=== PATIENT | female | born 1970 | race Caucasian/White ===

== ENCOUNTER 2019-03-30 18:45 | Emergency (ER) | payer BC, OTHER ==
--- NOTE | 2019-03-30 19:14 | ERPHSYRPT ---
- History of Present Illness Time Seen by Provider: 03/30/19 19:00 Source: patient Exam Limitations: clinical condition Patient Subjective Stated Complaint: pt reports she was stopped by police for failing to use her turn signal, pt denies being under the influence. pt reports abdominal pain, states she hasnt pooped for 2 days. pt denies any other complaints. pt reports being discharged from treatment center [facility] in [facility] yesterday, reports formerly using methamphetamine, states she has been trying to stay clean. pt reports she uses alcohol weekly. Triage Nursing Assessment: pt is aox3, pt appears tearful, pt make up is smeared down her face, pt appears to doze off at times but awakens easily, pupils perrl, afebrile, resps easy and non labored, cap refill < 3 seconds, radial pulses strong and equal. pt abd soft non tender, bowel sounds normoactive x4. pt skin pink warm dry. Physician History: PATIENT WITH A HISTORY OF METHAMPHETAMINE USE, JUST RELEASED FROM [facility] YESTERDAY AND WAS STOPPED BY POLICE FOR A TRAFFIC VIOLATION. DENIES INGESTION OF ALCOHOL OR STREET DRUGS. PATIENT HERE FOR MEDICAL CLEARANCE FOR LONGTERM. Timing/Duration: today Modifying Factors: Improves With: other (CONSTIPATION FOR 2 DAYS.) Associated Symptoms: other (CONSTIPATION ) Allergies/Adverse Reactions: No Known Drug Allergies Allergy (Unverified 03/30/19 19:04) Home Medications: No Reportable Medications [No Reported Medications] 03/30/19 [History] Hx Tetanus, Diphtheria Vaccination/Date Given: No Hx Influenza Vaccination/Date Given: No Hx Pneumococcal Vaccination/Date Given: No Immunizations Up to Date: Yes - Review of Systems Constitutional: No Fever, No Chills Eyes: No Symptoms Ears, Nose, & Throat: No Symptoms Respiratory: No Cough, No Dyspnea Cardiac: No Chest Pain, No Edema, No Syncope Abdominal/Gastrointestinal: Other (CONSTIPATION), No Abdominal Pain, No Nausea, No Vomiting, No Diarrhea Genitourinary Symptoms: No Dysuria Musculoskeletal: No Back Pain, No Neck Pain Skin: No Rash Neurological: No Dizziness, No Focal Weakness, No Sensory Changes Psychological: No Symptoms Endocrine: No Symptoms All Other Systems: Reviewed and Negative - Past Medical History Respiratory History: Asthma - Past Surgical History Past Surgical History: Yes Gastrointestinal: Cholecystectomy Other Surgical History: bunion removal bilat - Social History Smoking Status: Current every day smoker Patient Lives Alone: Yes - Female History Hx Last Menstrual Period: 03/29/19 Hx Now: No - Nursing Vital Signs Nursing Vital Signs: Initial Vital Signs Temperature 98 F 03/30/19 18:47 Pulse Rate 90 03/30/19 18:47 Respiratory Rate 20 03/30/19 18:47 Blood Pressure 158/106 03/30/19 18:47 O2 Sat by Pulse Oximetry 99 03/30/19 18:47 Pain Scale Pain Intensity 6 - Physical Exam General Appearance: no apparent distress, alert Eye Exam: PERRL/EOMI, eyes nml inspection Ears, Nose, Throat Exam: normal ENT inspection, TMs normal, pharynx normal, moist mucous membranes Neck Exam: normal inspection, non-tender, supple, full range of motion Respiratory Exam: normal breath sounds, lungs clear, No respiratory distress Cardiovascular Exam: regular rate/rhythm, normal heart sounds, normal peripheral pulses Gastrointestinal/Abdomen Exam: soft, normal bowel sounds, other (NONTENDER, NO PALPABLE MASSES), No tenderness, No mass Back Exam: normal inspection, normal range of motion, No CVA tenderness, No vertebral tenderness Extremity Exam: normal inspection, normal range of motion, pelvis stable Neurologic Exam: alert, oriented x 3, cooperative, normal mood/affect, nml cerebellar function, nml station & gait, sensation nml, No motor deficits Skin Exam: normal color, warm, dry, No rash Lymphatic Exam: No adenopathy SpO2: 99 Ordered Tests: Active Orders 24 hr Category Date Time Status BMP Stat Lab 03/30/19 18:50 Ordered CBC W DIFF Stat Lab 03/30/19 18:50 Ordered ETHYL ALCOHOL Stat Lab 03/30/19 18:50 Ordered Urine Triage Profile Stat Lab 03/30/19 18:51 Uncollected - Progress Progress Note: 03/30/19 19:14 PATIENT REFUSED LAB DRAW OR URINALYSIS FOR TRIAGE Counseled pt/family regarding: diagnosis - Departure Departure Disposition: [facility]/Long Term Clinical Impression: Medical clearance for incarceration Condition: Stable Critical Care Time: No Referrals: RADHA MONTEIRO [Primary Care Provider] - Additional Instructions: FOLLOWUP WITH YOUR PRIMARY CARE PROVIDER NEEDED.
[2019-03-30 19:38] VITALS: BP 163/98; PULSE 80; O2SAT 100
== END 2019-03-30 19:22 | disposition home or self-care (01) ==
LOC: ED 18:45
DX: Z02.89 Encounter for other administrative examinations (principal)
CPT/HCPCS: 99283

== ENCOUNTER 2019-03-31 16:38 | Emergency (ER) | payer OTHER ==
--- NOTE | 2019-03-31 16:57 | ERPHSYRPT ---
- History of Present Illness Time Seen by Provider: 03/31/19 16:45 Source: patient, police Exam Limitations: no limitations Physician History: 48 y/o white female resident in local detention, smoker with h/o asthma arrives via em[facility] with complaint of soa. pt seen here yesterday in this ED and was medically cleared for detention placement. per asset protection officer sx began earlier when she did not get a phone call at detention. ems gave pt a neb tx Timing/Duration: today Activities at Onset: none Severity of Dyspnea-Max: mild Severity of Dyspnea-Current: mild Possible Cause: no prior episodes Associated Symptoms: anxiety, cough, wheezing Allergies/Adverse Reactions: No Known Drug Allergies Allergy (Verified 03/31/19 16:52) Home Medications: No Reportable Medications [No Reported Medications] 03/30/19 [History] Hx Tetanus, Diphtheria Vaccination/Date Given: No Hx Influenza Vaccination/Date Given: No Hx Pneumococcal Vaccination/Date Given: No - Review of Systems Constitutional: No Symptoms Eyes: No Symptoms Ears, Nose, & Throat: No Symptoms Respiratory: Dyspnea, Wheezing Cardiac: No Symptoms Abdominal/Gastrointestinal: No Symptoms Genitourinary Symptoms: No Symptoms Musculoskeletal: No Symptoms Skin: No Symptoms Neurological: No Symptoms Psychological: No Symptoms Endocrine: No Symptoms Hematologic/Lymphatic: No Symptoms Immunological/Allergic: No Symptoms All Other Systems: Reviewed and Negative - Past Medical History Neurological History: No Pertinent History ENT History: No Pertinent History Cardiac History: No Pertinent History Respiratory History: Asthma Endocrine Medical History: No Pertinent History Musculoskeletal History: No Pertinent History GI Medical History: No Pertinent History History: No Pertinent History Psycho-Social History: Anxiety Female Reproductive Disorders: No Pertinent History - Past Surgical History Past Surgical History: Yes Neuro Surgical History: No Pertinent History Cardiac: No Pertinent History Respiratory: No Pertinent History Gastrointestinal: Cholecystectomy Genitourinary: No Pertinent History Musculoskeletal: No Pertinent History Female Surgical History: No Pertinent History Other Surgical History: bunion removal bilat - Social History Smoking Status: Current every day smoker Patient Lives Alone: Yes - Nursing Vital Signs Nursing Vital Signs: Initial Vital Signs Temperature 98.8 F 03/31/19 16:41 Pulse Rate 88 03/31/19 16:41 Respiratory Rate 24 03/31/19 16:41 Blood Pressure 150/103 03/31/19 16:41 O2 Sat by Pulse Oximetry 100 03/31/19 16:41 - Physical Exam General Appearance: no apparent distress, alert, anxiety Eye Exam: PERRL/EOMI, eyes nml inspection Ears, Nose, Throat Exam: hearing grossly normal Neck Exam: normal inspection, non-tender, supple, full range of motion Respiratory Exam: normal breath sounds, lungs clear, airway intact, No chest tenderness, No respiratory distress Cardiovascular/Chest Exam: normal heart sounds, regular rate/rhythm, murmur Abdominal/Gastrointestinal Exam: soft, normal bowel sounds, No tenderness Rectal Exam: not done Extremity Exam: non-tender, normal range of motion, normal inspection Neurologic Exam: alert, oriented x 3, cooperative, combatant diver qualified II-XII nml as tested Skin Exam: normal color, warm, dry Lymphatic Exam: No adenopathy SpO2 Interpretation: borderline oxygenation O2 Delivery: Room Air - Course Nursing assessment & vital signs reviewed: Yes EKG Interpreted by Me: RATE (65), Sinus Rhythm, NORMAL AXIS, NORMAL INTERVALS, NORMAL QRS, Non-specific ST Changes, Other (no comparison ekg) Ordered Tests: Active Orders 24 hr Category Date Time Status EKG-ER Only STAT Care 03/31/19 16:58 Active Pulse Oximetry (ED) STAT Care 03/31/19 16:58 Active CHEST 1 VIEW (PORTABLE) Stat Exams 03/31/19 16:58 Taken BMP Stat Lab 03/31/19 17:18 Completed CBC W DIFF Stat Lab 03/31/19 17:18 Completed D-DIMER QUANTITATION Stat Lab 03/31/19 17:18 Completed TROPONIN Q3H Lab 03/31/19 17:18 Completed TROPONIN Q3H Lab 03/31/19 20:00 Ordered TROPONIN Q3H Lab 03/31/19 23:00 Ordered TROPONIN Q3H Lab 04/01/19 02:00 Ordered TROPONIN Q3H Lab 04/01/19 05:00 Ordered Lab/Rad Data: Laboratory Result Diagrams 03/31/19 17:18 03/31/19 17:18 Laboratory Results 03/31/19 03/31/19 03/31/19 Range/Units 17:18 17:18 17:18 WBC (4.0-10.5) K/mm3 RBC (4.1-5.4) M/mm3 Hgb (12.0-16.0) gm/dl Hct (35-47) % MCV (78-100) fl MCH (26-32) pg MCHC (32-36) g/dl RDW (11.5-14.0) % Plt Count (150-450) K/mm3 MPV (6-9.5) fl Gran % (36.0-66.0) % Eos # (Auto) (0-0.5) Absolute Lymphs (auto) (1.0-4.6) Absolute Monos (auto) (0.0-1.3) Lymphocytes % (24.0-44.0) % Monocytes % (0.0-12.0) % Eosinophils % (0.00-5.0) % Basophils % (0.0-0.4) % Absolute Granulocytes (1.4-6.9) Basophils # (0-0.4) D-Dimer 247 (215-500) ng/mL Sodium 139 (137-145) mmol/L Potassium 3.7 (3.5-5.1) mmol/L Chloride 105 (98-107) mmol/L Carbon Dioxide 25 (22-30) mmol/L Anion Gap 12.6 (5-15) MEQ/L BUN 10 (7-17) mg/dL Creatinine 0.76 (0.52-1.04) mg/dL Estimated GFR > 60.0 ML/MIN Glucose 89 (74-106) mg/dL Calcium 9.5 (8.4-10.2) mg/dL Troponin I < 0.012 (0.000-0.034) ng/mL 03/31/19 Range/Units 17:18 WBC 10.6 H (4.0-10.5) K/mm3 RBC 4.95 (4.1-5.4) M/mm3 Hgb 15.6 (12.0-16.0) gm/dl Hct 47.5 H (35-47) % MCV 96.0 (78-100) fl MCH 31.5 (26-32) pg MCHC 32.8 (32-36) g/dl RDW 13.1 (11.5-14.0) % Plt Count 318 (150-450) K/mm3 MPV 9.1 (6-9.5) fl Gran % 65.2 (36.0-66.0) % Eos # (Auto) 0.21 (0-0.5) Absolute Lymphs (auto) 2.76 (1.0-4.6) Absolute Monos (auto) 0.67 (0.0-1.3) Lymphocytes % 26.1 (24.0-44.0) % Monocytes % 6.3 (0.0-12.0) % Eosinophils % 2.0 (0.00-5.0) % Basophils % 0.4 (0.0-0.4) % Absolute Granulocytes 6.90 (1.4-6.9) Basophils # 0.04 (0-0.4) D-Dimer (215-500) ng/mL Sodium (137-145) mmol/L Potassium (3.5-5.1) mmol/L Chloride (98-107) mmol/L Carbon Dioxide (22-30) mmol/L Anion Gap (5-15) MEQ/L BUN (7-17) mg/dL Creatinine (0.52-1.04) mg/dL Estimated GFR ML/MIN Glucose (74-106) mg/dL Calcium (8.4-10.2) mg/dL Troponin I (0.000-0.034) ng/mL - Progress Progress: unchanged Air Movement: good Progress Note: 03/31/19 18:52 pt has been resting comfortably during here. sleeping. pts room air sats 96% 03/31/19 18:53 cxr-no acute process Counseled pt/family regarding: lab results, diagnosis, need for follow-up, rad results - Departure Departure Disposition: [facility]ior [facility] Clinical Impression: Shortness of breath, Anxiety Condition: Stable Critical Care Time: No Referrals: DOCTOR,NO FAMILY [Primary Care Provider] -
[2019-03-31 17:15] LABS: BASOPHIL % 0.4 % (0.0-0.4); Basophil (Absolute #) 0.04 (0-0.4); Eosinophil (Absolute #) 0.21 (0-0.5); Granulocytes % 65.2 % (36.0-66.0); Hematocrit 47.5 % (35-47); Hemoglobin 15.6 gm/dl (12.0-16.0); Lymphocyte (Absolute #) 2.76 (1.0-4.6); Lymphocytes % 26.1 % (24.0-44.0); Mean Corpuscular Hemoglobin 31.5 pg (26-32); Mean Corpuscular Hgb Concent. 32.8 g/dl (32-36); Mean Platelet Volume 9.1 fl (6-9.5); Monocyte (Absolute #) 0.67 (0.0-1.3); Monocytes % 6.3 % (0.0-12.0); Platelet Count 318 K/mm3 (150-450); Red Blood Count 4.95 M/mm3 (4.1-5.4); Red Cell Distribution Width 13.1 % (11.5-14.0); White Blood Count 10.6 K/mm3 (4.0-10.5)
[2019-03-31 17:27] LABS: ANION GAP 12.6 MEQ/L (5-15); BLOOD UREA NITROGEN 10 mg/dL (7-17); CHLORIDE 105 mmol/L (98-107); Calcium 9.5 mg/dL (8.4-10.2); Carbon Dioxide 25 mmol/L (22-30); Creatinine 1 0.76 mg/dL (0.52-1.04); Glucose 89 mg/dL (74-106); Potassium 3.7 mmol/L (3.5-5.1); SODIUM 139 mmol/L (137-145)
[2019-03-31 18:50] VITALS: O2SAT 96
[2019-03-31 18:58] VITALS: BP 151/90; PULSE 87
--- NOTE | 2019-04-01 08:34 | XRAY ---
Indication: Chest pain and short of breath. Comparison: None Portable chest demonstrates normal heart and lungs with incidental calcified granulomas. Bony thorax intact.
== END 2019-03-31 19:10 | disposition home or self-care (01) ==
LOC: ED 16:38
DX: R06.02 Shortness of breath (principal); F41.9 Anxiety disorder, unspecified
CPT/HCPCS: 36415; 71045; 80048; 84484; 85025; 85379; 93005; 99284

== ENCOUNTER 2019-05-09 16:49 | Emergency (ER) | payer OTHER ==
--- NOTE | 2019-05-09 16:50 | ERPHSYRPT ---
- History of Present Illness Source: patient, police Exam Limitations: intoxication Timing/Duration: today Severity of Symptoms-Max: mild Severity of Symptoms-Current: mild Context related to: legal problems Suicidal thoughts: specific plan (shotgun) Associated Symptoms: agitated, anxiety, ingestion Previous symptoms: same symptoms as today Hx Tetanus, Diphtheria Vaccination/Date Given: No Hx Influenza Vaccination/Date Given: No Hx Pneumococcal Vaccination/Date Given: No <HERON RIZZO - Last Filed: 05/09/19 19:11> <JENIFER JUAREZ - Last Filed: 05/10/19 00:45> - History of Present Illness Time Seen by Provider: 05/09/19 16:50 Physician History: 48 y/o white female brought into ED by police after serving her an arrest warrant. police handcuffed pt and then policed witnessed pt swallow a baggy containing 1 gram of methamphetamine. pt states on arrival to ED she wants to kill herself. pt states she was going to kill herself yesterday with a shotgun but she was "too much of a pussy". pt initially stated she was having soa and hyperventilating but once we talked to her about her necessary work up and possible emergency senior care and 72 hour hold, she immediately was relieved of her symptoms. (HERON RIZZO) Allergies/Adverse Reactions: codeine Allergy (Verified 05/09/19 18:56) Home Medications: No Reportable Medications [No Reported Medications] 03/30/19 [History] - Past Medical History Neurological History: No Pertinent History ENT History: No Pertinent History Cardiac History: No Pertinent History Respiratory History: Asthma Endocrine Medical History: No Pertinent History Musculoskeletal History: No Pertinent History GI Medical History: No Pertinent History History: No Pertinent History Psycho-Social History: Anxiety Female Reproductive Disorders: No Pertinent History - Past Surgical History Past Surgical History: Yes Neuro Surgical History: No Pertinent History Cardiac: No Pertinent History Respiratory: No Pertinent History Gastrointestinal: Cholecystectomy Genitourinary: No Pertinent History Musculoskeletal: No Pertinent History Female Surgical History: No Pertinent History Other Surgical History: bunion removal bilat - Social History Smoking Status: Current every day smoker Exposure to second hand smoke: Yes Drug Use: methamphetamines Patient Lives Alone: Yes <HERON RIZZO - Last Filed: 05/09/19 19:11> - Review of Systems Constitutional: No Symptoms Eyes: No Symptoms Ears, Nose, & Throat: No Symptoms Respiratory: No Symptoms Cardiac: No Symptoms Abdominal/Gastrointestinal: No Symptoms Genitourinary Symptoms: No Symptoms Musculoskeletal: No Symptoms Skin: No Symptoms Neurological: No Symptoms Psychological: No Symptoms Endocrine: No Symptoms Hematologic/Lymphatic: No Symptoms Immunological/Allergic: No Symptoms All Other Systems: Reviewed and Negative <HERON RIZZO - Last Filed: 05/09/19 19:11> - Physical Exam General Appearance: mild distress, alert, anxiety Eyes, Ears, Nose, Throat Exam: normal ENT inspection, moist mucous membranes Neck Exam: normal inspection, non-tender, supple, full range of motion Respiratory Exam: normal breath sounds, lungs clear, airway intact, No chest tenderness, No respiratory distress Cardiovascular Exam: tachycardia Gastrointestinal/Abdominal Exam: soft, normal bowel sounds, No tenderness Extremities Exam: normal inspection, normal range of motion, No evidence of injury Current Suicidality: has suicide plan Neurological Exam: alert, airplane patroller II-XII nml as tested, oriented x 3, anxious Appearance: disheveled, impaired insight Behavior/Eye Contact/Speech: avoids eye contact, alert & uncooperative Thoughts/Hallucinations: no apparent hallucination Skin Exam: normal color, warm, dry SpO2 Interpretation: normal O2 Delivery: Room Air <HERON RIZZO - Last Filed: 05/09/19 19:11> - Nursing Vital Signs Nursing Vital Signs: Initial Vital Signs Temperature 98.0 F 05/09/19 16:50 Pulse Rate 114 H 05/09/19 16:50 Respiratory Rate 24 05/09/19 16:50 Blood Pressure 128/74 05/09/19 16:50 O2 Sat by Pulse Oximetry 100 05/09/19 16:50 Pain Scale Pain Intensity 2 - Course Nursing assessment & vital signs reviewed: Yes EKG Interpreted by Me: RATE (100), Sinus Rhythm, NORMAL AXIS, NORMAL INTERVALS, NORMAL QRS, Other (no sig change from comparison ekg dated 03/31/19) <HERON RIZZO - Last Filed: 05/09/19 19:11> - CT Exams Abdomen/Pelvis CT Interpretation: Discussed w/radiologist (CT abdomen and pelvis: Impression 1. No comparisons. Stomach moderately distended with food/fluid. Query 9 mm round radiopacity mixed in. Mild diffuse fecal stasis. Minimal sigmoid diverticulosis. Low-lying IUD. Remaining uterus lumpy/bumpy possible fibroids. 1 cm right renal cyst) <JENIFER JUAREZ - Last Filed: 05/10/19 00:45> Ordered Tests: Active Orders 24 hr Category Date Time Status Clean Catch Urine Specimen STAT Care 05/09/19 17:18 Active EKG-ER Only STAT Care 05/09/19 17:18 Active IV Insertion STAT Care 05/09/19 17:18 Active ABDOMEN AND PELVIS W/0 CONTRAS [CT] Stat Exams 05/09/19 18:15 Taken KUB Stat Exams 05/09/19 17:19 Taken ACETAMINOPHEN Stat Lab 05/09/19 17:51 Completed CBC W DIFF Stat Lab 05/09/19 17:51 Completed CMP Stat Lab 05/09/19 17:51 Completed ETHYL ALCOHOL Stat Lab 05/09/19 17:51 Completed HCG,QUALITATIVE URINE Stat Lab 05/09/19 19:30 Completed SALICYLATE Stat Lab 05/09/19 17:51 Completed UA W/RFX UR CULTURE Stat Lab 05/09/19 17:18 Completed Urine Triage Profile Stat Lab 05/09/19 17:18 Completed Medication Summary Discontinued Medications Generic Name Dose Route Start Last Admin Trade Name Freq PRN Reason Stop Dose Admin Sodium Chloride 1,000 mls @ 999 mls/hr 05/09/19 17:18 05/09/19 18:15 Sodium Chloride 0.9% 1000 Ml IV 05/09/19 18:18 999 mls/hr .Q1H1M STA Administration Sodium Chloride Confirm 05/09/19 18:12 Sodium Chloride 0.9% 1000 Ml Administered 05/09/19 18:13 Dose 1,000 mls @ ud .ROUTE .STK-MED ONE Ondansetron HCl 4 mg 05/09/19 17:18 05/09/19 18:15 Zofran 4 Mg/2 Ml Vial IV 05/09/19 17:19 4 mg STAT ONE Administration Ondansetron HCl Confirm 05/09/19 18:12 Zofran 4 Mg/2 Ml Vial Administered 05/09/19 18:13 Dose 4 mg .ROUTE .STK-MED ONE Lab/Rad Data: Laboratory Result Diagrams 05/09/19 17:51 05/09/19 17:51 Laboratory Results 05/09/19 05/09/19 05/09/19 Range/Units 19:30 17:51 17:51 WBC 9.8 (4.0-10.5) K/mm3 RBC 4.55 (4.1-5.4) M/mm3 Hgb 14.3 (12.0-16.0) gm/dl Hct 43.5 (35-47) % MCV 95.6 (78-100) fl MCH 31.4 (26-32) pg MCHC 32.9 (32-36) g/dl RDW 13.1 (11.5-14.0) % Plt Count 324 (150-450) K/mm3 MPV 9.1 (6-9.5) fl Gran % 64.7 (36.0-66.0) % Eos # (Auto) 0.37 (0-0.5) Absolute Lymphs (auto) 2.29 (1.0-4.6) Absolute Monos (auto) 0.77 (0.0-1.3) Lymphocytes % 23.3 L (24.0-44.0) % Monocytes % 7.8 (0.0-12.0) % Eosinophils % 3.8 (0.00-5.0) % Basophils % 0.4 (0.0-0.4) % Absolute Granulocytes 6.35 (1.4-6.9) Basophils # 0.04 (0-0.4) Sodium 140 (137-145) mmol/L Potassium 3.4 L (3.5-5.1) mmol/L Chloride 104 (98-107) mmol/L Carbon Dioxide 27 (22-30) mmol/L Anion Gap 12.2 (5-15) MEQ/L BUN 14 (7-17) mg/dL Creatinine 0.80 (0.52-1.04) mg/dL Estimated GFR > 60.0 ML/MIN Glucose 126 H (74-106) mg/dL Calcium 9.8 (8.4-10.2) mg/dL Total Bilirubin 0.30 (0.2-1.3) mg/dL AST 20 (14-36) U/L ALT 19 (0-35) U/L Alkaline Phosphatase 61 (38-126) U/L Serum Total Protein 7.1 (6.3-8.2) g/dL Albumin 3.9 (3.5-5.0) g/dL Urine Color (YELLOW) Urine Appearance (CLEAR) Urine pH (5-6) Ur Specific [place] (1.005-1.025) Urine Protein (Negative) Urine Ketones (NEGATIVE) Urine Blood (0-5) Tay/ul Urine Nitrite (NEGATIVE) Urine Bilirubin (NEGATIVE) Urine Urobilinogen (0-1) mg/dL Ur Leukocyte Esterase (NEGATIVE) Urine WBC (Auto) (0-5) /HPF Urine RBC (Auto) (0-2) /HPF U Epithel Cells (Auto) (FEW) /HPF Urine Bacteria (Auto) (NEGATIVE) /HPF Urine Mucus (Auto) (NEGATIVE) /HPF Urine Culture Reflexed (NO) Urine Glucose (NEGATIVE) mg/dL Urine HCG, Qual NEGATIVE (Negative) Salicylates < 1.0 L (2-20) mg/dL Urine Opiates Level (NEGATIVE) Ur Methadone (NEGATIVE) Acetaminophen < 10 L (10-30) ug/ml Urine Barbiturates (NEGATIVE) Ur Phencyclidine (PCP) (NEGATIVE) Urine Amphetamine (NEGATIVE) U Benzodiazepine Level (NEGATIVE) Urine Cocaine (NEGATIVE) Urine Marijuana (THC) (NEGATIVE) Ethyl Alcohol < 10 (0-10) mg/dL 05/09/19 05/09/19 Range/Units 17:18 17:18 WBC (4.0-10.5) K/mm3 RBC (4.1-5.4) M/mm3 Hgb (12.0-16.0) gm/dl Hct (35-47) % MCV (78-100) fl MCH (26-32) pg MCHC (32-36) g/dl RDW (11.5-14.0) % Plt Count (150-450) K/mm3 MPV (6-9.5) fl Gran % (36.0-66.0) % Eos # (Auto) (0-0.5) Absolute Lymphs (auto) (1.0-4.6) Absolute Monos (auto) (0.0-1.3) Lymphocytes % (24.0-44.0) % Monocytes % (0.0-12.0) % Eosinophils % (0.00-5.0) % Basophils % (0.0-0.4) % Absolute Granulocytes (1.4-6.9) Basophils # (0-0.4) Sodium (137-145) mmol/L Potassium (3.5-5.1) mmol/L Chloride (98-107) mmol/L Carbon Dioxide (22-30) mmol/L Anion Gap (5-15) MEQ/L BUN (7-17) mg/dL Creatinine (0.52-1.04) mg/dL Estimated GFR ML/MIN Glucose (74-106) mg/dL Calcium (8.4-10.2) mg/dL Total Bilirubin (0.2-1.3) mg/dL AST (14-36) U/L ALT (0-35) U/L Alkaline Phosphatase (38-126) U/L Serum Total Protein (6.3-8.2) g/dL Albumin (3.5-5.0) g/dL Urine Color STRAW (YELLOW) Urine Appearance CLEAR (CLEAR) Urine pH 7.0 (5-6) Ur Specific [place] 1.008 (1.005-1.025) Urine Protein NEGATIVE (Negative) Urine Ketones NEGATIVE (NEGATIVE) Urine Blood NEGATIVE (0-5) Tay/ul Urine Nitrite NEGATIVE (NEGATIVE) Urine Bilirubin NEGATIVE (NEGATIVE) Urine Urobilinogen NEGATIVE (0-1) mg/dL Ur Leukocyte Esterase NEGATIVE (NEGATIVE) Urine WBC (Auto) 0-2 (0-5) /HPF Urine RBC (Auto) 0-2 (0-2) /HPF U Epithel Cells (Auto) RARE (FEW) /HPF Urine Bacteria (Auto) NONE (NEGATIVE) /HPF Urine Mucus (Auto) SLIGHT (NEGATIVE) /HPF Urine Culture Reflexed NO (NO) Urine Glucose NEGATIVE (NEGATIVE) mg/dL Urine HCG, Qual (Negative) Salicylates (2-20) mg/dL Urine Opiates Level NEGATIVE (NEGATIVE) Ur Methadone NEGATIVE (NEGATIVE) Acetaminophen (10-30) ug/ml Urine Barbiturates NEGATIVE (NEGATIVE) Ur Phencyclidine (PCP) NEGATIVE (NEGATIVE) Urine Amphetamine POSITIVE (NEGATIVE) U Benzodiazepine Level NEGATIVE (NEGATIVE) Urine Cocaine NEGATIVE (NEGATIVE) Urine Marijuana (THC) POSITIVE (NEGATIVE) Ethyl Alcohol (0-10) mg/dL <HERON RIZZO - Last Filed: 05/09/19 19:11> - Progress Progress: improved <JENIFER JUAREZ - Last Filed: 05/10/19 00:45> - Progress Progress Note: 05/09/19 19:[address] juarez. he accepts pt (HERON RIZZO) 05/09/19 23:28 48-year-old white female with history of anxiety brought by police after serving an old rest warned patient apparently was witnessed to swallow baggy which she stated contained 1 g of methamphetamines Patient then expressed suicidal ideation she apparently arrived hyperventilating. Patient has been stable since arrival patient did have an episode where she pulled a plastic bag over her head but housekeeping coordinator noticed this in bed was taken away Patient is positive for methamphetamines as well as marijuana Her other labs are essentially stable EKG sinus rhythm without ectopy. Patient was evaluated through [facility] [place] [facility]. Apparently there were no available beds There was consideration to having the patient go to a secure area in the residential and [facility] had actually stated that the patient could be evaluated at the residential in the morning. The nurses are working to explore possible placement for this patient. The patient is stable at this time. 05/09/19 23:31 The patient had been discussed by the patient's nurse with poison control. They had recommended monitoring the patient for 6 hours after her possible ingestion. The patient has had no problems other than her suicidal ideation since discussion with poison control. 05/10/19 00:37 There apparently no available beds for the patient at this time. Patient will be taken by the police to [facility] where there are nurses available to monitor the patient. The plan is to have the patient reevaluated by [facility] tomorrow. the patient has been discussed with the nurse at the [facility] by our nurse here they are accepting the patient at the [facility] 05/10/19 00:41 (JENIFER JUAREZ) <HERON RIZZO - Last Filed: 05/09/19 19:11> - Departure Departure Disposition: [facility] Critical Care Time: No <JENIFER JUAREZ - Last Filed: 05/10/19 00:45> - Departure Clinical Impression: Suicidal ideation, intentional drug ingestion( methamphetam Condition: Fair Referrals: DOCTOR,NO FAMILY [Primary Care Provider] - Additional Instructions: Proceed to the [facility]. Followup with [facility]. followup with residential doctor.
[2019-05-09] MEDS ORDERED: Sodium Chloride 0.9% 1000 ML 1,000 ML IV STA (17:18)
[2019-05-09] MEDS ORDERED: Zofran 4 MG/2 ML VIAL IV ONE (17:18)
[2019-05-09 17:54] LABS: BASOPHIL % 0.4 % (0.0-0.4); Basophil (Absolute #) 0.04 (0-0.4); Eosinophil % 3.8 % (0.00-5.0); Eosinophil (Absolute #) 0.37 (0-0.5); Granulocyte Absolute (ANC) 6.35 (1.4-6.9); Granulocytes % 64.7 % (36.0-66.0); Hematocrit 43.5 % (35-47); Hemoglobin 14.3 gm/dl (12.0-16.0); Lymphocyte (Absolute #) 2.29 (1.0-4.6); Lymphocytes % 23.3 % (24.0-44.0); Mean Cell Volume 95.6 fl (78-100); Mean Corpuscular Hemoglobin 31.4 pg (26-32); Mean Corpuscular Hgb Concent. 32.9 g/dl (32-36); Mean Platelet Volume 9.1 fl (6-9.5); Monocytes % 7.8 % (0.0-12.0); Platelet Count 324 K/mm3 (150-450); Red Blood Count 4.55 M/mm3 (4.1-5.4); Red Cell Distribution Width 13.1 % (11.5-14.0); White Blood Count 9.8 K/mm3 (4.0-10.5)
[2019-05-09 18:07] LABS: ALBUMIN 3.9 g/dL (3.5-5.0); ALKALINE PHOSPHATASE 61 U/L (38-126); ANION GAP 12.2 MEQ/L (5-15); BLOOD UREA NITROGEN 14 mg/dL (7-17); CHLORIDE 104 mmol/L (98-107); Calcium 9.8 mg/dL (8.4-10.2); Carbon Dioxide 27 mmol/L (22-30); Glucose 126 mg/dL (74-106); Potassium 3.4 mmol/L (3.5-5.1); SGOT/AST 20 U/L (14-36); SGPT/ALT 19 U/L (0-35); SODIUM 140 mmol/L (137-145); Total Protein 7.1 g/dL (6.3-8.2)
[2019-05-09] MEDS ORDERED: Zofran 4 MG/2 ML VIAL ONE (18:12)
[2019-05-09] MEDS ORDERED: Sodium Chloride 0.9% 1000 ML 1,000 ML ONE (18:12)
[2019-05-09 18:13] LABS: ACETAMINOPHEN < 10 ug/ml (10-30); ETHYL ALCOHOL < 10 mg/dL (0-10); SALICYLATE < 1.0 mg/dL (2-20)
[2019-05-09 19:46] LABS: Appearance CLEAR (CLEAR); Bilirubin NEGATIVE (NEGATIVE); Blood NEGATIVE Ery/ul (0-5); Epithelial Cells RARE /HPF (FEW); Glucose NEGATIVE (NEGATIVE); Ketones NEGATIVE (NEGATIVE); Leukocyte Esterase NEGATIVE (NEGATIVE); Mucus SLIGHT /HPF (NEGATIVE); Nitrite NEGATIVE (NEGATIVE); Protein,Urine Dip NEGATIVE (Negative); RBC 0-2 /HPF (0-2); Specific Gravity 1.008 (1.005-1.025); Urobilinogen NEGATIVE mg/dL (0-1); WBC 0-2 /HPF (0-5)
[2019-05-09 20:00] LABS: Barbiturate,Urine NEGATIVE (NEGATIVE); Benzodiazepine,Urine NEGATIVE (NEGATIVE); Cocaine,Urine NEGATIVE (NEGATIVE); Methadone,Urine NEGATIVE (NEGATIVE); Opiate,Urine NEGATIVE (NEGATIVE); PCP,Urine NEGATIVE (NEGATIVE); THC,Urine POSITIVE (NEGATIVE)
[2019-05-09 20:33] LABS: Amphetamine,Urine POSITIVE (NEGATIVE)
[2019-05-09 23:36] VITALS: O2SAT 97
[2019-05-10 00:46] VITALS: BP 167/96; PULSE 94
--- NOTE | 2019-05-10 08:41 | XRAY ---
Indication: Foreign body ingestion. Multiple contiguous axial images obtained through the abdomen and pelvis without contrast as ordered. Comparison: None Lung bases demonstrates mild bibasilar dependent atelectasis and a few incidental calcified granulomas. No infiltrate or effusion. Heart is not enlarged. Stomach is moderately distended with food/fluid with a 9 mm round radiopacity mixed in. Noncontrasted stomach and bowel loops otherwise appear nonobstructed. Normal appendix. Mild diffuse fecal debris throughout and minimal sigmoid diverticulosis. No free fluid/air. Uterus demonstrates a IUD considered low-lying, possibly protruding through the cervix. Fundus of the uterus appears lumpy bumpy suggestive of fibroids. 1 cm right mid renal exophytic cyst. Scattered splenic calcified granulomas. Previous cholecystectomy. Remaining liver, pancreas, spleen, adrenal glands, kidneys, ureters, and bladder appear unremarkable for noncontrast exam. Mild scattered aortoiliac calcifications without AAA. Osseous structures intact. No ventral or inguinal hernias. Impression: 1. Stomach distended with food/fluid with a 9 mm round radiopacity possibly the foreign body in question. 2. Uterus demonstrates low-lying IUD and probable fundal fibroids. Pelvic sonogram may yield further information. 3. Incidental fecal stasis without obstruction, sigmoid diverticulosis, right renal cyst, and evidence for old granulomatous disease. 4. Remaining CT abdomen/pelvis without contrast exam is negative. CT DI 23.68
--- NOTE | 2019-05-10 08:51 | XRAY ---
Indication: Foreign body ingestion. KUB nonacute and nonobstructed with incidental calcified splenic granulomas, cholecystectomy clips, IUD, and mild scattered fecal debris. Otherwise no radiopaque foreign body or free air. Osseous structures intact.
== END 2019-05-10 01:00 | disposition home or self-care (01) ==
LOC: ED 16:49
DX: R45.851 Suicidal ideations (principal); F15.90 Other stimulant use, unspecified, uncomplicated; F10.129 Alcohol abuse with intoxication, unspecified
CPT/HCPCS: 36000; 36415; 74018; 74176; 80053; 80307; 81001; 84703; 85025; 90791; 93005; 96374; 99284; G0480; G0481; Q3014; J2405

== ENCOUNTER 2025-09-16 22:45 | Emergency (ER) | payer OTHER ==
[2025-09-16 22:57] VITALS: TEMP 97.3
[2025-09-16 23:07] LABS: BASOPHIL % 0.4 % (0.1-1.2); Basophil (Absolute #) 0.07 x10^3/uL (0.01-0.08); Eosinophil (Absolute #) 0.45 x10^3/uL (0.04-0.36); Hematocrit 40.8 % (34.1-44.9); Hemoglobin 12.9 g/dL (11.2-15.7); IMMATURE GRAN # 0.09 x10^3u/L (0.001-0.031); IMMATURE GRAN % 0.5 % (0.001-0.429); Lymphocyte (Absolute #) 2.77 x10^3/uL (1.18-3.74); Mean Corpuscular Hemoglobin 30.5 pg (25.6-32.2); Mean Corpuscular Hgb Concent. 31.6 g/dL (32.2-35.5); Monocyte (Absolute #) 1.32 x10^3/uL (0.24-0.86); NUCLEATED RBC # 0.00 x10^3u/L (0.00-0.012); NUCLEATED RBC % 0.0 % (0.00-0.2); Platelet Count 343 x10^3/uL (182-369); Red Blood Count 4.23 x10^6/uL (3.93-5.22); White Blood Count 18.1 x10^3/uL (3.98-10.04)
[2025-09-16] MEDS ORDERED: ROCEPHIN 1 GM / 100 ML NaCl 1 GM/100 ML IVPB IV ONE (23:13)
[2025-09-16] MEDS: ROCEPHIN 1 GM / 100 ML NaCl 1 GM/100 ML IVPB IV ONE (23:15)
[2025-09-16 23:20] VITALS: BP 184/87; PULSE 78; RESP 19; O2SAT 96
[2025-09-16 23:21] LABS: Calcium 9.4 mg/dL (8.4-10.2); Carbon Dioxide 26.0 mmol/L (22-30); Creatinine 1 0.87 mg/dL (0.52-1.04); EST GLOMERULAR FILTRATION RATE 79.1 ML/MIN; Glucose 100.0 mg/dL (74-106); Potassium 3.7 mmol/L (3.5-5.1)
--- NOTE | 2025-09-16 23:23 | ERPHSYRPT ---
- History of Present Illness Patient Subjective Stated Complaint: pt reports a wound to her right hand that she noticed after walking her dog yesterday. pt states she scratched it unknowingly today and noticed there was some drainage present. Triage Nursing Assessment: pt is aox3, pupils perrl, afebrile, resps easy and non labored, cap refill < 3 seconds, radial pulses strong and equal, pt skin pink warm dry. redness and slight noted to the right thumb, there is a small wound noted, no drainage at this time. Physician History: Skin abscess right hand, onset of symptoms yesterday, [place] had noticed some swelling to the area apparently scratch the area and a apparently there was some type of blister that subsequently opened, she denies history of recurrent skin infections, she denies history of MRSA, she denied any history of any traumatic injury to the area Allergies/Adverse Reactions: codeine Allergy (Verified 05/09/19 18:56) Hx Tetanus, Diphtheria Vaccination/Date Given: No Hx Influenza Vaccination/Date Given: No Hx Pneumococcal Vaccination/Date Given: No Immunizations Up to Date: No Travel Risk - International Travel Have you traveled outside of the country in past 3 weeks: No - Emerging Infectious Disease Are you exhibiting symptoms associated with any current EIDs: No - Past Medical History Pertinent Past Medical History: Yes Neurological History: No Pertinent History ENT History: No Pertinent History Cardiac History: No Pertinent History Respiratory History: Asthma Endocrine Medical History: No Pertinent History Musculoskeletal History: No Pertinent History GI Medical History: No Pertinent History History: No Pertinent History Psycho-Social History: Anxiety Female Reproductive Disorders: No Pertinent History Other Medical History: hx drug abuse - Past Surgical History Past Surgical History: Yes Neuro Surgical History: No Pertinent History Cardiac: No Pertinent History Respiratory: No Pertinent History Gastrointestinal: Cholecystectomy Genitourinary: No Pertinent History Musculoskeletal: No Pertinent History Female Surgical History: No Pertinent History Other Surgical History: bunion removal bilat - Female History Hx Now: No - Social History Smoking Status: Current every day smoker Exposure to second hand smoke: Yes Drug Use: none - Social Determinants of Health Will the patient participate in the screening: Yes Do you worry about a steady place to live?: No Do you have any problems with any of the following?: No known problems In the past 12 months,have you had to go without utilities?: No Transportation Issues: No Has anyone in your support network made you feel unsafe?: No Have you or anyone in your house had to go w/o enough food: No - Nursing Vital Signs Nursing Vital Signs: Initial Vital Signs Temperature 97.3 F 09/16/25 22:49 Pulse Rate 89 09/16/25 22:49 Respiratory Rate 18 09/16/25 22:49 Blood Pressure 203/125 09/16/25 22:49 O2 Sat by Pulse Oximetry 97 09/16/25 22:49 Pain Scale Pain Intensity 8 - Physical Exam Extremity Exam: swelling, tenderness (Right hand, Dorsal surface in the webspace between the thumb and index finger) Skin Exam: other (, there is some surrounding erythema, there is no red streaking) SpO2 Interpretation: normal SpO2: 96 - Radiology Exams Right Hand X-ray Interpretation: Interpreted by me, Negative, No Fracture, No Subluxation, Other (no FB) Ordered Tests: Active Orders 24 hr Category Date Time Status IV Insertion STAT Care 09/16/25 22:50 Active HAND (MINIMUM 3 VIEWS) Stat Exams 09/16/25 23:02 Taken BMP Stat Lab 09/16/25 23:00 Completed CBC W DIFF Stat Lab 09/16/25 23:00 Completed Medication Summary Discontinued Medications Generic Name Dose Route Start Last Admin Trade Name Felipe PRN Reason Stop Dose Admin Ceftriaxone Sodium 1 gm in 100 mls @ 200 mls/hr 09/16/25 23:03 09/16/25 23:15 Rocephin 1 Gm / 100 Ml Nacl IV 09/16/25 23:32 200 mls/hr STAT ONE 200 mls/hr Administration Ceftriaxone Sodium Confirm 09/16/25 23:13 Rocephin 1 Gm / 100 Ml Nacl Administered 09/16/25 23:14 Dose 1 gm in 100 mls @ ud IV .STK-MED ONE Lab/Rad Data: Laboratory Result Diagrams 09/16/25 23:00 09/16/25 23:00 Laboratory Results 09/16/25 09/16/25 Range/Units 23:00 23:00 WBC 18.1 H (3.98-10.04) x10^3/uL RBC 4.23 (3.93-5.22) x10^6/uL Hgb 12.9 (11.2-15.7) g/dL Hct 40.8 (34.1-44.9) % MCV 96.5 H (79.4-94.8) fL MCH 30.5 (25.6-32.2) pg MCHC 31.6 L (32.2-35.5) g/dL RDW 12.7 (11.7-14.4) % Plt Count 343 (182-369) x10^3/uL MPV 8.9 L (9.4-12.3) fL Gran % 74.0 H (34.0-71.1) % Immature Gran % (Auto) 0.5 H (0.001-0.429) % Nucleat RBC Rel Count 0.0 (0.00-0.2) % Eos # (Auto) 0.45 H (0.04-0.36) x10^3/uL Immature Gran # (Auto) 0.09 H (0.001-0.031) x10^3u/L Absolute Lymphs (auto) 2.77 (1.18-3.74) x10^3/uL Absolute Monos (auto) 1.32 H (0.24-0.86) x10^3/uL Absolute Nucleated RBC 0.00 (0.00-0.012) x10^3u/L Lymphocytes % 15.3 L (19.3-51.7) % Monocytes % 7.3 (4.7-12.5) % Eosinophils % 2.5 (0.7-5.8) % Basophils % 0.4 (0.1-1.2) % Absolute Granulocytes 13.35 H (1.56-6.13) x10^3/uL Basophils # 0.07 (0.01-0.08) x10^3/uL Sodium 139 (135-145) mmol/L Potassium 3.7 (3.5-5.1) mmol/L Chloride 106 (98-107) mmol/L Carbon Dioxide 26 (22-30) mmol/L Anion Gap 11.1 (5-15) MEQ/L BUN 18 H (7-17) mg/dL Creatinine 0.87 (0.52-1.04) mg/dL Estimated GFR 79.1 ML/MIN Glucose 100 (74-106) mg/dL Calcium 9.4 (8.4-10.2) mg/dL - Progress Progress Note: 09/16/25 23:34 Discussed labs and x-rays, recommend she follow-up in 3 to 4 days for recheck - Departure Departure Disposition: Home Clinical Impression: Abscess of right hand Condition: Stable Critical Care Time: No Referrals: DANE FABIAN MD [ACTIVE STAFF, [facility]] - Follow Up with PCP/3 days Instructions: Skin abscess Additional Instructions: Wash with soap and water, apply triple antibiotic to the area, follow-up with primary care for recheck in 3 to 4 days Prescriptions: Minocycline HCl 100 mg PO BID #20 tablet
--- NOTE | 2025-09-17 08:54 | XRAY ---
Indication: Abscess. Comparison: None 3 view right hand demonstrates mild 1st metacarpal multangular degenerative changes. No other bony, articular, or soft tissue abnormalities.
== END 2025-09-16 23:52 | disposition home or self-care (01) ==
LOC: ED 22:45
DX: L02.511 Cutaneous abscess of right hand (principal); Z79.899 Other long term (current) drug therapy; Z72.0 Tobacco use